=== PATIENT | male | born 1965 | race Caucasian/White ===

== ENCOUNTER 2025-04-27 07:42 | Inpatient (IN) | payer OTHER, SELFPAY ==
[2025-04-27] VITALS (7 sets, daily range): BP systolic 142–196; BP diastolic 90–116; BMI 33.3
[2025-04-27] MEDS: NSS 1000 IV ×5 (03:32→21:41)
[2025-04-27] MEDS: TORADOL 30 MG IV (03:32)
[2025-04-27 03:34] LABS: Hematocrit 47.6 % (39.0-52.0); Hemoglobin 16.8 g/dL (13.0-18.0); Mean Corp Hgb Conc. 35.3 g/dL (33.0-37.0); Mean Corpuscular Volume 90.2 fL (80.0-94.0); Nucleated Red Blood Cells % 0 % (-); Platelet Count 266 10^3/uL (130-400); Red Cell Dist. Width 13.0 % (11.5-14.5)
[2025-04-27 04:04] LABS: ALT (SGPT) 32 U/L (0-50); AST (SGOT) 23 U/L (17-59); Albumin 4.6 g/dl (3.5-5.0); Alkaline Phosphatase 68 U/L (38-126); Blood Urea Nitrogen 16 mg/dl (9-20); Calcium 9.7 mg/dl (8.4-10.2); Carbon Dioxide 24 mmol/L (22-30); Chloride 103 mmol/L (98-107); Glucose 151 mg/dl (70-99); Lipase 90 U/L (23-300); Potassium 3.8 mmol/L (3.5-5.1); Sodium 135 mmol/L (135-145); Total Protein 7.3 g/dl (6.3-8.2); eGFR > 60.00
--- NOTE | 2025-04-27 06:20 | ED.GENMED ---
History of Present Illness
General
Chief Complaint: Abdominal Pain
Source: patient
Exam Limitations: none
Time Seen by Provider: 04/27/25 04:40
Nursing documentation reviewed up to this point in time: agreed with
History of Present Illness
History of Present Illness:
The patient is a 60-year-old male presenting with sudden onset abdominal pain that began yesterday afternoon. He describes the pain as constant with intermittent sharp waves. The patient denies any history of similar pain, gallstones, or abdominal
surgeries. The pain is primarily located in the right upper quadrant to right mid abdomen that radiates to the right flank. The patient reports difficulty finding a comfortable position due to the discomfort. There is no associated diarrhea or
fever. The pain does not radiate to the chest, shoulder, or groin. He describes feeling bloated but denies pain upon pressure in the lower abdomen. He has not had a fever nor chills. No nausea nor vomiting. He has not taken anything for
discomfort.
Maintained on lisinopril/HCTZ for hypertension as well as 1 additional antihypertensive medication.
Past History
Past History
ED Past Medical History: HTN
ED Past Surgical History: Brain (Benign brain tumor removal 2022)
Social History
Tobacco: Non-smoker
Alcohol: Occasional
Drug: None
Personal:
Living: with family
Employment: Employed
Family History
Family History: Other (Noncontributory)
Phy Exam
Physical Exam
Physical Exam:
GENERAL: Alert , in no apparent distress
EYE: pupils equal and reactive. anicteric
NECK: Supple, nontender, no meningismus, no significant adenopathy.
ENT: oral mucosa is moist. No rhinorrhea.
CARDIAC: Regular rate and rhythm. no murmur.
LUNGS: Clear breath sounds bilaterally, no acute respiratory distress, no wheezes/rales/rhonchi
ABDOMEN: Rotund, soft, nondistended, minimal tenderness right upper quadrant with deep palpation only, no r/g, no cvat. Mildly hypoactive bowel sounds.
NEUROLOGICAL: Alert and oriented x3, no focal neuro deficits.
SKIN: Warm and dry, normal color, skin intact. No rash.
MUSCULOSKELETAL: No C/C/E. peripheral pulses are full and equal b/l. No palpable tenderness.
PSYCH: Normal and appropriate interaction.
Course
Orders/Labs/Results
Orders:
Orders
04/27/25 03:26
Complete Blood Count/With Diff Urgent
Comprehensive Metabolic Panel Urgent
Lipase Urgent
04/27/25 03:30
0.9% Sodium Chloride 1000 ml [Nss] 1,000 ml IV BOLUS
Ketorolac [Toradol] 30 mg IV NOW STA
Ondansetron Injectable [Zofran] 4 mg IV NOW STA
04/27/25 03:31
Ketorolac [Toradol] 30 mg .ROUTE .STK-MED ONE
Ondansetron Injectable [Zofran] 4 mg .ROUTE .STK-MED ONE
04/27/25 04:51
CT Abd/pelvis W Iv Cont Urgent
Comment:
Reason For Exam: RUQ to R flank pain x 1 day
04/27/25 05:53
Urinalysis Reflex To Culture Urgent
Date Specimen was Collected: 04/27/25
Time Specimen was Collected: 05:48
Abnormal Lab Results
04/27/25
03:26
WBC 11.5 H 10^3/uL
(4.8-10.8)
MCH 31.8 H pg
(27.0-31.0)
Abs Immat Gran (auto) 0.1 H 10^3/uL
(0-0.05)
Absolute Neuts (auto) 9.0 H 10^3/uL
(1.4-6.5)
Absolute Monos (auto) 0.7 H 10^3/uL
(0.1-0.6)
Neutrophils % 78.2 H %
(42.2-75.2)
Lymphocytes % 14.0 L %
(20.5-51.1)
Glucose 151 H mg/dl
(70-99)
04/27/25 03:26
04/27/25 03:26
Vital Signs
Initial and Last Documented VS:
Initial Vital Signs
Temp Pulse Resp BP Pulse Ox
97.8 F 88 20 196/116 98
04/27/25 02:54 04/27/25 02:54 04/27/25 02:54 04/27/25 02:54 04/27/25 02:54
Last Documented Vital Signs
Temp Pulse Resp BP Pulse Ox
97.8 F 77 18 142/90 94
04/27/25 02:54 04/27/25 03:28 04/27/25 03:28 04/27/25 04:00 04/27/25 06:01
MDM/Problems Addressed
Differential Diagnosis Includes:
The Differential Diagnosis includes, in no particular order and is not limited to:
1. Renal colic
2. Abdominal aortic aneurysm
3. Acute pancreatitis
4. Peptic ulcer disease
5. Gastroesophageal reflux disease
6. Acute cholecystitis
7. Diverticulitis
8. Acute mesenteric ischemia
9. Myocardial infarction
10. Appendicitis
MDM/Problems Addressed:
Acute:
- Abdominal pain
Patient is much more comfortable after an IV dose of Toradol.
Labs thus far reveal mildly elevated white blood cell count of 11.5. Unremarkable chemistries save for random glucose 151
Urinalysis is pending.
Will plan for CT abdomen pelvis with IV contrast.
Chronic conditions affecting care: HTN
*Radiology
Radiology exam reviewed: radiology read reviewed
*Pulse Oximetry
SaO2: 94
Oxygen Mode of Delivery: Room air
Patient hypoxic: no
*Critical Care Note
Total Time (30-74mins, 75-104mins- exclusive of procedures): Not Applicable
Update Note
Update Note:
06:40
Patient is much more comfortable but continues with complaints of abdominal pain. Mild tenderness right mid abdomen, mild generalized lower abdominal tenderness now.
CAT scan concerning for sigmoid diverticulitis as well as note of dilated loops of small bowel up to 3.1 cm with a zone of transition in the central abdomen concerning for partial small bowel obstruction versus ileus.
There is no ureteral obstruction. No hydronephrosis. No AAA.
As patient continues with pain, continues with some tenderness to palpation will initiate IV antibiotics for coverage of acute diverticulitis and will admit to hospitalist service with concern for partial small bowel obstruction.
ED Attending Note
-
Portions of this chart may have been created with voice recognition software.� Occasional wrong word or��sound alike� substitutions may have occurred due to the inherent limitations of voice recognition software.
Discharge Plan
Departure
Patient Disposition: Admit
Date of Disposition: 04/27/25
Time of Disposition: 06:39
Admit to: Med/Surg
Presentation/result/management discussed w/ accepting MD/DO: Hospitalist
Discharge Problem:
Diverticulitis, Partial small bowel obstruction
Prescriptions:
No Action
lisinopril-hydrochlorothiazide 1 EACH tablet
1 ea PO DAILY
Referrals:
Sean Miller DO [Family Provider, Family Practice]
Interventions
Interventions:
*Risk Screen - Suicide Last Done: 04/27/25 02:54
*General Assessment Last Done: 04/27/25 03:16
*Neglect/Abuse Screening Last Done: 04/27/25 02:54
*ED- Fall Risk Assessment Last Done: 04/27/25 03:16
*ED COVID-19 Vaccine History Last Done: 04/27/25 03:16
SP-Tmwfeo-Trnidcecld Assessment Last Done: 04/27/25 03:16
Discharge Date and Time
Print Language: MEXICAN
[2025-04-27 06:25] LABS: Urine Character Clear (Clear)
[2025-04-27 06:29] LABS: Urine Squamous Cell 0-2 /LPF (Few)
[2025-04-27 06:30] LABS: Urine Red Blood Cell 0-2 /HPF (0-2); Urine White Cell 0-2 /HPF (0-5)
[2025-04-27] MEDS: FLAGYL 500 MG 100 IV ×3 (06:43→21:41)
--- NOTE | 2025-04-27 07:15 | HPS.HSE ---
Family Physician
-
Family Physician: Sean Miller
Chief Complaint
-
Abdominal pain since yesterday afternoon
History of Present Illness
60 years old male presented with abdominal pain. Patient reported that pain started yesterday, started mild then progressed to severe, right-sided. Associated with mild nausea but no vomiting. No fever or chills. Last bowel movement was
yesterday night. He has not passed gas since then. In the emergency room, he was found to have leukocytosis and CAT scan reportedly showing partial small bowel obstruction/ileus with diverticulitis.
Medical History
Past Medical History
Past Medical History: Reports Other (Hypertension, gout)
Past Surgical History: Reports Other (No recent major surgery)
Social History
Tobacco: Non-smoker
Alcohol: Daily
Drug: None
Personal:
Living: With Family
Employment: Employed
Family History
Family History: Not pertinent
Allergies / Home Medications
Allergies reflects when Allergies were last updated in [facility].
Home Medications with original date entered in [facility]
Allergy/Medication List:
Allergies
Allergy/AdvReac Type Severity Reaction Status Date / Time
Penicillins Allergy Rash Verified 04/27/25 02:57
Home Medications
lisinopril 20 mg-hydrochlorothiazide 25 mg tablet 1 ea PO DAILY 01/07/19
Colchicine as needed
Review of Systems
-
History Source: Patient
A 12 point ROS was completed and negative except as noted: Yes
Constitutional: Denies Fever, Fatigue or Chills
EENT: Denies Sore Throat or Runny Nose
Respiratory: Denies Cough or Trouble Breathing
Cardiac: Denies Chest Pain
Abdomen/GI: Reports Abdominal Pain and Nausea; Denies Vomiting or Bloody Stools
: Denies Dysuria
Musculoskeletal: Denies Joint Pain
Skin: Denies Rash
Neurological: Denies Numbness
Endocrine: Denies Temp Intolerance
Psych: Denies Panic Disorder
Physical Exam
Vital Signs
Vital Signs
Temp Pulse Resp BP Pulse Ox
97.8 F 77 18 142/90 94
04/27/25 02:54 04/27/25 03:28 04/27/25 03:28 04/27/25 04:00 04/27/25 06:24
Physical Exam
General: No Apparent Distress and Comfortable
HEENT: Moist mucous membranes and Atraumatic
Respiratory: Clear
Cardiac: S1/S2 and Regular Rhythm
GI: Soft, Non Tender and Non Distended
Genito-urinary: No Bradford
Musculoskeletal: No Clubbing, No Cyanosis and No Edema
Skin: No Jaundice
Neuro: AO x 3 and Nonfocal/grossly intact
Psych: Calm and Intact Judgment/Insight
Laboratory Results
-
04/27/25 03:26
04/27/25 03:26
Laboratory Results
Total Bilirubin 0.8 mg/dl (0.2-1.3) 04/27/25 03:26
AST 23 U/L (17-59) 04/27/25 03:26
ALT 32 U/L (0-50) 04/27/25 03:26
Alkaline Phosphatase 68 U/L (38-126) 04/27/25 03:26
Lipase 90 U/L (23-300) 04/27/25 03:26
Impression/Plan
-
60 years old male presenting with abdominal pain, was found to have diverticulitis
#Acute diverticulitis
CT interpreted by ER doctor showing ileus/small bowel obstruction, await formal report by radiology
Admit the patient to the hospital.
Patient is feeling better after receiving IV antibiotics and IV Toradol in the ER. He denies abdominal pain at present time.
Examination relatively benign with no tenderness upon abdominal examination. He is not toxic-appearing.
Will continue with bowel rest with IV fluid then advance diet as tolerated
IV Protonix
IV antibiotics patient reported. Developing rash in his hands with penicillin. Does not recall taking cephalosporins. He has he tried Zithromax in the past.
Blood culture
As needed antiemetic medication as needed as needed pain medication
Consult surgery
# Leukocytosis, will continue with antibiotic. Will do blood culture
# Hypertensive urgency, likely precipitated by pain. Currently blood pressure has improved. Will continue lisinopril. Hold hydrochlorothiazide while receiving IV fluid. Add as needed IV hydralazine.
Patient denies chest pain.
# History of gout. He takes colchicine as needed.
# Obesity
# History of alcohol intake. Patient reports having 1 or 2 beers a day or sometimes glass of wine. Denies withdrawal symptoms in the past.
# DVT and GI prophylaxis
Total time spent to see the patient, examined the patient, review data and lab results, discussed treatment plan with patient, nursing staff, ER doctor around 75 minutes
--- NOTE | 2025-04-27 08:44 | EDCM ---
CM reviewed chart and met with pt bedside in ED. Lives with his , 2 story home, 2 [address]BR[address], has first floor half bath, full flight to second floor bedroom and full bath.
Independent in ADLs, personal care and ambulation at baseline. No assistive devices, no DME.
Confirms prescription coverage.
No hx VN or SNF.
PCP: Sean Miller
Ph[facility]acy: [facility]
Anticipate discharge home, no needs, CM will continue to follow.
[2025-04-27] MEDS: LEVAQUIN 100 IV (08:45)
--- NOTE | 2025-04-27 10:06 | CON.CRS ---
Consultation
-
Date/Time Consultation Requested: 04/27/2025, 07:21
Date/Time Consultation Performed: 04/27/2025, 12:05
Requesting Provider: Shawn Goldstein MD
Performing Provider: Klaus Sanderson MD
Reason for Consultation: diverticulitis
Medical History
-
Chief Complaint: diverticulitis
History of Present Illness:
60yo male, with a PMH of HTN and gout, presents to [facility] with abdominal pain. The pain started yesterday and progressed to severe on the right side. He has some nausea but no vomiting. Denies fevers or chills. WBC was 11.5. His last
bowel movement was last night. CT A/P shows 'Fluid-filled loops of small bowel dilated up to 3.1 cm adjacent to the sigmoid colon with some transition in the central abdomen, findings could represent partial/incomplete small bowel obstruction.
Adjacent mild stranding to the sigmoid colon with diverticulosis, cannot exclude mild sigmoid diverticulitis. No free air.'
Last colonoscopy was by Dr. Linares in 2021 which showed one 4 mm polyp in the ascending colon, one 3 mm polyp in the sigmoid colon, diverticulosis in the sigmoid colon, in the descending colon and in the transverse colon. His sister of colon
cancer.
Past Medical History
Past Medical History: Other (Hypertension, gout)
Social History
Tobacco: Non-Smoker
Alcohol: Daily
Drug: None
Personal:
Family History
Family History: Reviewed & Not Pertinent
Allergies / Home Medications
Allergy/AdvReac Type Severity Reaction Status Date / Time
Penicillins Allergy Rash Verified 04/27/25 02:57
�Medication �Instructions �Recorded �Confirmed �Type
lisinopril 20 1 ea PO DAILY 01/07/19 01/07/19 History
mg-hydrochlorothiazide 25 mg tablet
Review of Systems
-
History Source: Patient
Abdomen/GI: Abdominal Pain
A 10 point review of systems was completed, and was negative except as per HPI.
Physical Exam
Vital Signs
Temp 97.8 F 04/27/25 02:54
Pulse 77 04/27/25 03:28
Resp Rate 18 04/27/25 03:28
Blood pressure 146/95 04/27/25 08:00
SaO2 97 04/27/25 08:01
04/26/25 04/27/25 04/28/25
06:59 06:59 06:59
Actual Weight 107.4 kg
Lab Results / Allergies
04/27/25 03:26
04/27/25 03:26
WBC 11.5 10^3/uL (4.8-10.8) H 04/27/25 03:26
Hgb 16.8 g/dL (13.0-18.0) 04/27/25 03:26
Hct 47.6 % (39.0-52.0) 04/27/25 03:26
Plt Count 266 10^3/uL (130-400) 04/27/25 03:26
Abs Immat Gran (auto) 0.1 10^3/uL (0-0.05) H 04/27/25 03:26
Neutrophils % 78.2 % (42.2-75.2) H 04/27/25 03:26
Allergy/AdvReac Type Severity Reaction Status Date / Time
Penicillins Allergy Rash Verified 04/27/25 02:57
Physical Exam
General: Well Developed, Well Nourished and No Apparent Distress
GI: Soft, Non Tender and Non Distended
Skin: Warm and Dry
Neuro: AO x 3
Psych: Calm
Data Reviewed
-
CT Scan: Image Personally Visualized and interpreted, Discussed with Physician and Discussed with Patient
Labs: Labs Reviewed by me, Discussed with Physician and Discussed with Patient
Old Records: Reviewed
Assessment / Plan
-
Assessment: 60 yo male with likely acute diverticulitis
Plan:
-Advance to clears today
-Maintain IVFs and IV antibiotics
-No plan for surgery at this time
-Patient anxious to leave. Recommend he stay overnight to receive 24 hours of IV antibiotics prior to discharge. Anticipate a low residue diet tomorrow if improves.
-Due for a scope in 2026
[2025-04-27] MEDS: NORVASC PO (10:10)
[2025-04-27] MEDS: HEPARIN 5000 UNITS SC ×2 (10:10→21:41)
[2025-04-27] MEDS: ZESTRIL PO (10:10)
[2025-04-27] MEDS: PROTONIX IV 40 MG IV (10:11)
[2025-04-27] MEDS: NSS (PRESERVATIVE FREE) 10 ML IV (10:11)
[2025-04-27] MEDS: FLUSH (NSS) 1 FLUSH IV (10:11)
[2025-04-27] MEDS: NORVASC 5 MG PO (10:30)
--- NOTE | 2025-04-27 10:33 | PTCARENOTE ---
Received patient from ED via stretcher. Pt AAOX3. Pox: 97% RA. IVFs infusing without difficulty. Plan of care ongoing.
[2025-04-27] MEDS: ZESTRIL 20 MG PO (12:21)
[2025-04-28 05:10] VITALS: BMI 33.3
[2025-04-28] MEDS: NSS 1000 IV (05:36)
[2025-04-28] MEDS: FLAGYL 500 MG 100 IV (05:37)
--- NOTE | 2025-04-28 07:11 | W.PN.HOSP.TC ---
Today's Communication/Plan
-
Discharge planning today
Assessment / Plan
Assessment / Plan
Physical exam:
General: Well Developed, Well Nourished and No Apparent Distress
HEENT: Normocephalic, Atraumatic and Moist Mucous Membranes
Respiratory: Clear to Auscultation; Negative Wheezes, Rales or Rhonchi
Cardiac: Regular Rhythm and S1/S2
GI: Soft, Nontender and Nondistended
Musculoskeletal: No Clubbing, No Cyanosis and No Edema
Neuro: Awake, Alert and Oriented
Psych: Calm
A/P:
Acute diverticulitis:
Appreciate colorectal surgery input
Advancing to low residue diet
Change antibiotics to oral
Stop IV fluid
CRS cleared him for discharge today
Anticipated Discharge: Today
Subjective/Interval History
-
Date of Service: April 28, 2025
No abdominal pain nausea or vomiting
Objective Data
-
Labs:
Laboratory Results
04/28/25
06:00
WBC Pending
Hgb Pending
Hct Pending
Plt Count Pending
Sodium Pending
Potassium Pending
Chloride Pending
Carbon Dioxide Pending
BUN Pending
Creatinine Pending
Glucose Pending
Calcium Pending
Vital Signs:
Vital Signs
Temp Pulse Resp BP Pulse Ox
97.9 F 67 20 159/107 97
04/27/25 23:10 04/27/25 23:10 04/27/25 23:10 04/27/25 23:10 04/27/25 23:10
I&O
04/27/25 04/28/25 04/29/25
06:59 06:59 06:59
Intake Total 2600 / 2600
Balance 2600 / 2600
[2025-04-28] MEDS: NORVASC 5 MG PO (07:19)
[2025-04-28] MEDS: ZESTRIL 20 MG PO (07:19)
[2025-04-28] MEDS: NSS (PRESERVATIVE FREE) 10 ML IV (07:20)
[2025-04-28] MEDS: PROTONIX IV 40 MG IV (07:20)
[2025-04-28] MEDS: FLUSH (NSS) 1 FLUSH IV (07:27)
[2025-04-28] MEDS: LEVAQUIN 100 IV (07:27)
[2025-04-28] MEDS: HEPARIN SC (07:30)
[2025-04-28 08:05] VITALS: BP 162/114
[2025-04-28 10:05] LABS: Hematocrit 43.0 % (39.0-52.0); Hemoglobin 14.8 g/dL (13.0-18.0); Mean Corp Hgb Conc. 34.4 g/dL (33.0-37.0); Mean Corpuscular Volume 93.1 fL (80.0-94.0); Platelet Count 209 10^3/uL (130-400); Red Cell Dist. Width 13.1 % (11.5-14.5)
[2025-04-28 10:20] LABS: Blood Urea Nitrogen 8 mg/dl (9-20); Calcium 8.4 mg/dl (8.4-10.2); Carbon Dioxide 27 mmol/L (22-30); Chloride 105 mmol/L (98-107); Estimated Creatinine Clearance > 125 ml/min; Glucose 98 mg/dl (70-99); Potassium 4.1 mmol/L (3.5-5.1); Sodium 138 mmol/L (135-145); eGFR > 60.00
--- NOTE | 2025-04-28 10:47 | W.PN.CRS1 ---
Today's Communication / Plan
-
Low residue diet
Will sign off
Assessment/Plan
-
Assessment: 60 yo male with likely acute diverticulitis
Plan:
-Advance to low residue
-Finish course of po antibiotics as an outpatient.
-No plan for surgery at this time
-Okay for discharge from our standpoint. Will need to follow-up in the office in a few weeks with Dr. Linares. Discussed this with the patient. We will sign off. Please contact us if any surgical issues arise.
-Due for a scope in 2026
Subjective Data
Subjective Data
Date of Service: April 28, 2025
Patient states he feels good. He has no pain. Denies nausea or vomiting. Moving his bowels. Tolerated fulls.
Objective Data
-
Vital Signs
Temp Pulse Resp BP Pulse Ox
97.2 F 70 16 162/114 98
04/28/25 08:05 04/28/25 08:05 04/28/25 08:05 04/28/25 08:05 04/28/25 10:25
Intake & Output
04/27/25 04/28/25 04/29/25
06:59 06:59 06:59
Intake Total 2600 / 2600
Balance 2600 / 2600
Intake:
Oral fluids 900 / 900
IV fluids (Total) 1600 / 1600
IV piggybacks 100 / 100
Other:
Number of approximated MODERATE 2
amounts of urine
Number of approximated LARGE 3
amounts of urine
Lab Results
04/28/25 08:56
04/28/25 08:56
Physical Exam
-
General: No Acute Distress and AOx3
Abdomen: Soft, Non Distended and Non Tender
Skin: Warm and Dry
[2025-04-28] MEDS: APRESOLINE 5 MG IV (11:04)
[2025-04-28 11:17] VITALS: BP 166/107
--- NOTE | 2025-04-28 11:49 | W.DCSUMMARY ---
Discharge Summary
Discharge Data
Date of Admission: 04/27/25
Date of Discharge: 04/28/25
-
Pending Results: No
Hospital Course
Patient is 60 years old male came into the hospital with abdominal pain and nausea and leukocytosis consistent with acute diverticulitis. Patient had a CT scan of the abdomen with evidence of diverticulitis and some dilated loops of small bowels as
well. Colorectal surgery consulted. He was started on clear liquid diet and he was advance to low residue without any problems. Antibiotics were able to switch to oral. Patient has improved substantially. Colorectal surgery has cleared him for
discharge today. He will be discharged in stable condition today.
Discharge Plan
-
Patient Disposition: Home (Routine Discharge)
Discharge Diagnosis/Procedures: Acute diverticulitis
Diet: Low Residue
Activity: As tolerated
Blood Work: Please PCP to order CBC, BMP within 1 week
Referrals:
Sean Linares MD [Active, [facility]] - in two to four weeks
Sean Miller DO [Family Provider, [facility]] - in less than 1 week
Prescriptions:
New
metronidazole 500 mg Tablet
500 mg PO TID 10 Days Qty: 30 0RF
levofloxacin 500 mg Tablet
500 mg PO DAILY 10 Days Qty: 10 0RF
Continued
lisinopril-hydrochlorothiazide 1 EACH tablet
1 ea PO DAILY
Rx Instructions:
Lisinopril 20mg; Hydrochlorothizide 25mg.
amlodipine 5 mg Tablet
2.5 mg PO DAILY
Discharge Orders:
Discharge Patient (As Directed); Ordered 04/28/25
Ordered By: Gonzalo Alejandra
Discharge Date and Time
Discharge Date/Time: 04/28/25 12:58
Print Language: BULGARIAN
--- NOTE | 2025-04-28 12:12 | CM ---
Patient seen at bedside
discharge today
IMM n/a
PLAN: Home no needs
drove self to hospital
[2025-04-28 12:39] VITALS: BP 153/91
== END 2025-04-28 12:58 | disposition home or self-care (01) | DRG 392 ==
LOC: 3 WEST ACU 07:42
PROVIDERS: ADMITTING PHYSICIAN Internal Medicine; ATTENDING PHYSICIAN Hospitalist; CONSULT PHYSICIAN Surgery; EMERGENCY PHYSICIAN Emergency Medicine; FAMILY PHYSICIAN Family Medicine
DX: K57.32 Diverticulitis of large intestine without perforation or abscess without bleeding (principal); K56.7 Ileus, unspecified; K56.600 Partial intestinal obstruction, unspecified as to cause; I10 Essential (primary) hypertension; I16.0 Hypertensive urgency; D72.829 Elevated white blood cell count, unspecified; E66.9 Obesity, unspecified; Z88.0 Allergy status to penicillin; Z79.899 Other long term (current) drug therapy; Z80.0 Family history of malignant neoplasm of digestive organs; Z86.0100 Personal history of colon polyps, unspecified
CPT/HCPCS: 74177; 80048; 80053; 81003; 81015; 83690; 85025; 85027; 96361; 96374; 96375; 99285; Q9967